=== PATIENT | male | born 1955 | race Caucasian/White ===

== ENCOUNTER 2018-05-01 14:26 | Emergency (ER) | payer BC ==
[~2018-05-01] VITALS: Ht 177.8 cm; Wt 75.0 kg
[2018-05-01] MEDS ORDERED: PRINIVIL20 MG PO (14:55)
[2018-05-01] MEDS ORDERED: [UNRECOGNIZED DRUG - OTHER] PO (14:58)
[2018-05-01] MEDS ORDERED: ACTOS45 MG PO (14:58)
[2018-05-01] MEDS ORDERED: REGLAN10 MG PO (14:58)
[2018-05-01] MEDS ORDERED: GLUCOPHAGE500 MG PO (14:59)
[2018-05-01] MEDS ORDERED: LIPITOR40 MG PO (14:59)
[2018-05-01 15:46] LABS: HEMATOCRIT 38.5 % (38.0-50.0); HEMOGLOBIN 13.8 G/DL (12.5-16.6); MCH 29.9 PG (29.0-34.0); MCHC 35.8 G/DL (30.0-36.0); MCV 83.5 FL (86-99); PLATELET COUNT 223 K/uL (156-360); RBC DIS.WIDTH-SD 42.6 % (39-53); RED BLOOD COUNT 4.61 M/uL (4.00-5.50); WHITE BLOOD COUNT 7.2 K/uL (4.1-10.2)
[2018-05-01 16:00] LABS: ALBUMIN 3.5 g/dL (3.2-4.8); CHLORIDE 100 mEq/L (99-109); POTASSIUM 3.6 mEq/L (3.7-5.4); SODIUM 133 mEq/L (136-147)
[2018-05-01 16:02] LABS: TOTAL PROTEIN 6.4 g/dL (6.4-8.3)
[2018-05-01 16:04] LABS: TOTAL BILIRUBIN 1.1 mg/dL (0.0-1.0)
[2018-05-01 16:06] LABS: ALKALINE PHOSPHATASE 103 IU/L (3-129); CREATININE 1.5 mg/dL (0.6-1.3); GFR ESTIMATE (CALCULATED) 50 mL/min/ (58.99-99999)
[2018-05-01 16:07] LABS: AST (GOT) 9 IU/L (2-34); UREA NITROGEN (BUN) 35 mg/dL (9-23)
[2018-05-01 16:08] LABS: DIRECT BILIRUBIN 0.4 mg/dL (0.0-0.3)
[2018-05-01 16:09] LABS: ALT (GPT) 10 IU/L (3-49)
[2018-05-01 16:15] LABS: GLUCOSE 437 mg/dL (70-99)
[2018-05-01 16:38] LABS: TROP-I INTERPRETATION NEGATIVE; TROPONIN-I < 0.01 ng/mL (0.0-0.30)
[2018-05-01 18:07] VITALS: BP 128/78
== END 2018-05-01 18:08 | disposition home or self-care (01) ==
LOC: EME 14:26
PROVIDERS: Emergency Medicine
DX: E11.65 Type 2 diabetes mellitus with hyperglycemia (principal); R55 Syncope and collapse; Z79.84 Long term (current) use of oral hypoglycemic drugs
CPT/HCPCS: 71045; 80048; 80076; 82010; 82948; 84484; 85027; 93005; 99281; 99285; J7030